=== PATIENT | female | born 1935 | race Caucasian/White ===

== ENCOUNTER 2017-02-06 12:14 | Emergency (ER) | payer MEDICARE ==
--- NOTE | ~2017-02-06 | EKG ---
PATIENT: SONIA DIANE UNIT #: [id number] Ventricular Rate: 142 BPM Atrial Rate: 142 BPM P-R Interval: 128 ms QRS Duration: 72 ms Q-T Interval: 276 ms QTC Calculation(Bezet): 424 ms P [place]: 82 degrees Calculated R [place]: 66 degrees Calculated T [place]: 92 degrees Diagnosis Line: Sinus tachycardia Diagnosis Line: Right atrial enlargement Diagnosis Line: Left ventricular hypertrophy with repolarization Diagnosis Line: abnormality Diagnosis Line: Abnormal ECG Diagnosis Line: When compared with ECG of 17-JUN-2011 21:12, Diagnosis Line: ST now depressed in Inferior leads Diagnosis Line: ST now depressed in Anterior leads Diagnosis Line: Nonspecific T wave abnormality now evident in Diagnosis Line: Lateral leads Diagnosis Line: Confirmed by JONATHAN RICH MD ([id number]) on 02/08/2017 Diagnosis Line: 7:27:45 AM INTERPRETING MD: LAYLA BERNABE
--- NOTE | ~2017-02-06 | CT4 ---
[facility] A Service of [facility] RADIOLOGY TEXT RESULTS PATIENT: SONIA DIANE LOCATION: [facility] : 37 UNIT #: [id number] AGE: [address]: Stefani Hernandez MD SEX: F ORDER DR: [id number] [facility] [address] [place], [place] [address] [id number] MR#: [id number] Acc #: [id number] NAME: SONIA DIANE : 1935 SEX: F STUDY DATE/TIME: 02/06/2017 14:44 UNIT: [facility] ROOM: STUDY DESCRIPTION: CT Abd and Pelv Wo Cont Attending Physician: Stefani Hernandez M.D. Referring Physician: Rebecca Blevins M.D. Ordering Physician: Stefani Hernandez M.D. Primary Care Physician: Rebecca Blevins M.D. MEDICAL IMAGING REPORT This report is preliminary unless electronic signature is present EXAM CT of abdomen and pelvis without contrast. DATE OF EXAM 02/06/2017 HISTORY Abdomen pain for 1 day. Shortness of air. UTI. TECHNIQUE CT of abdomen and pelvis was performed without contrast. NOTE: This CT exam was performed with one or more of the following radiation dose reduction techniques: automatic exposure control, adjustment of mA and/or kV according to patient size, and iterative reconstruction. FINDINGS CT ABDOMEN: Patchy subsegmental infiltrates or atelectasis in the posterior lower lobes in both lung bases. There is a small amount of free air in the anterior upper abdomen, extending over the anterior margin of the liver and posterior to the lower xiphoid. Findings are concerning for perforated viscus. No definite perforation site is identified, however. There is a small amount of ascites about the liver and spleen and in the pericolic gutters bilaterally. The liver, gallbladder, spleen, pancreas, and adrenal glands are unremarkable. Bilateral multifocal renal parenchymal atrophy. There is a 4.3 cm cyst in the lower pole of the right kidney. Normal caliber abdominal aorta. CT PELVIS: Small amount of ascites in the pelvis. Large amount of stool in the rectum suggesting fecal impaction with rectal distention. Sinclair catheter in the bladder. The bladder is decompressed. Hysterectomy. Moderate sigmoid diverticulosis. [facility]. [facility] A Service of [facility] RADIOLOGY TEXT RESULTS PATIENT: SONIA DIANE LOCATION: [facility] : 37 UNIT #: [id number] AGE: [address]: Stefani Hernandez MD SEX: F ORDER DR: IMPRESSION 1. There is a small amount of free air in the anterior upper abdomen extending over the anterior margin of the liver and inferior to the lower xiphoid. Findings are concerning for perforated viscus. However, no definite perforation site is identified as there is no additional free air or loculated fluid in the remainder of the abdomen or pelvis. No bowel obstruction. 2. Small amount of ascites in the abdomen and pelvis. 3. Large amount of stool in the distended rectum suggesting fecal impaction. 4. Sigmoid diverticulosis. 5. Sinclair catheter in the decompressed bladder. 6. Mild patchy subsegmental multifocal pulmonary infiltrates or atelectasis in the posterior lower lobes bilaterally. STAT * RESULT Dictated by... Sandeep Vargas M.D. THIS IS AN ELECTRONICALLY VERIFIED REPORT Sandeep Vargas M.D. at 02/06/2017 11:34 PM JACQUES/radha TD: 02/06/2017 15:52 JOB #: [id number] MEDICAL IMAGING REPORT COPY
--- NOTE | ~2017-02-06 | EKG ---
PATIENT: SONIA DIANE UNIT #: [id number] Ventricular Rate: 68 BPM Atrial Rate: 68 BPM P-R Interval: 294 ms QRS Duration: 138 ms Q-T Interval: 376 ms QTC Calculation(Bezet): 399 ms P [place]: 78 degrees Calculated R [place]: 83 degrees Calculated T [place]: 72 degrees Diagnosis Line: Sinus rhythm with 1st degree A-V block Diagnosis Line: Right bundle branch block with repolarization Diagnosis Line: abnormality Diagnosis Line: Abnormal ECG Diagnosis Line: When compared with ECG of 06-FEB-2017 11:11, Diagnosis Line: (unconfirmed) Diagnosis Line: GA interval has increased Diagnosis Line: Vent. rate has decreased BY 74 BPM Diagnosis Line: Right bundle branch block is now Present Diagnosis Line: Confirmed by JONATHAN RICH MD ([id number]) on 02/08/2017 Diagnosis Line: 7:29:43 AM INTERPRETING MD: LAYLA BERNABE
--- NOTE | ~2017-02-06 | CR72 ---
[facility] A Service of [facility] RADIOLOGY TEXT RESULTS PATIENT: SONIA DIANE LOCATION: [facility] : 36 UNIT #: [id number] AGE: [address]: Stefani Hernandez MD SEX: F ORDER DR: [id number] [facility] [place], [place] [address] [id number] E MR#: [id number] Acc #: [id number] NAME: SONIA DIANE : 1935 SEX: F STUDY DATE/TIME: 02/06/2017 11:40 UNIT: [facility] ROOM: STUDY DESCRIPTION: CR Chest Single View Portable Attending Physician: Stefani Hernandez M.D. Referring Physician: Rebecca Blevins M.D. Ordering Physician: Stefani Hernandez M.D. Primary Care Physician: Rebecca Blevins M.D. MEDICAL IMAGING REPORT This report is preliminary unless electronic signature is present EXAM Portable chest one-view DATE OF STUDY 02/06/2017 COMPARISON 06/17/2011 CLINICAL HISTORY Short of air for 1 day. FINDINGS Pulmonary hyperexpansion, with some optimal exposure over penetrating the upper portions of the lungs. Allowing for this there is no evidence of pneumothorax. There is some basilar interstitial prominence but no dense consolidation or effusion or suspicious nodule. Heart size is normal. IMPRESSION Findings probably indicates COPD without acute superimposed infiltrate, but exposure is suboptimal. Dictated by... Galen Parisi M.D. THIS IS AN ELECTRONICALLY VERIFIED REPORT Galen Parisi M.D. at 02/09/2017 1:50 PM TEV/to TD: 02/07/2017 10:30 JOB #: [id number] MEDICAL IMAGING REPORT [facility] A Service [facility] RADIOLOGY TEXT RESULTS PATIENT: SONIA DIANE LOCATION: [facility] : 36 UNIT #: [id number] AGE: [address]: Stefani Hernandez MD SEX: F ORDER DR: Page 1 of 1 COPY
--- NOTE | ~2017-02-06 | HP ---
Unit #: [id number] #: [id number] Patient: SONIA DIANE [id number] [facility]. [place], [place] [address] [id number] E MR#: [id number] NAME: SONIA DIANE ROOM: Age: 81 Sex: F Admission Date: 02/06/2017 : 1935 Attending Physician: Stefani Hernandez M.D. Referring Physician: Rebecca Blevins M.D. Primary Care Physician: Rebecca Blevins M.D. HISTORY AND PHYSICAL CHIEF COMPLAINT Short of air. HISTORY OF PRESENT ILLNESS The patient is an 81-year-old female with a past medical history of COPD, GERD, hyperlipidemia, who presented to the emergency department for evaluation of the above. History is obtained from chart review and discussion with ER staff as well as the patient's son who is at the bedside. The patient has apparently had two to three days of increasing confusion. She was last seen normal on February 03, 2017. The patient's son states that he works third shift so had not interacted with her much. Today, she was noted to be short of breath and so he called EMS. It is unclear if she has had any fever, any cough or cold symptoms or any other complaints. Upon arrival in the emergency department, pulse was 144, blood pressure 105/66, respiratory rate is 37. She was able to answer yes/no questions and was holding her abdomen. She had a CT of the abdomen and pelvis that showed a perforated viscus. During the course of her evaluation in the emergency department, she had developed severe respiratory distress and was intubated. Ultimately, pulse was lost. She was resuscitated. Upon arrival of family members, they requested that she be comfort measures only. She is being admitted to [facility] for evaluation and further treatment. PAST MEDICAL HISTORY 1. Admission to [facility] June 17 through the 2010 for syncope. 2. COPD with continued tobacco abuse. 3. Hyperlipidemia. 4. GERD. PAST SURGICAL HISTORY Hysterectomy. SOCIAL HISTORY The patient lives with her son. She is a smoker. FAMILY HISTORY Notable for malignancy. ALLERGIES Penicillin. Unit #: [id number] #: [id number] Patient: SONIA DIANE HOME MEDICATIONS None. REVIEW OF SYSTEMS A complete review of systems is unobtainable from the patient due to altered mental status. DIAGNOSTIC STUDIES LABORATORY: Troponin is less than 0.05. Arterial blood gas shows pH of 7.415, pCO2 of 46.1, pO2 of 237 on BiPAP with an FIO2 of 100%. Complete blood count notable for white blood cell count of 12.7, hematocrit and hematocrit 7.6 and 27.3 respectively. Lactic acid 2.7. Comprehensive metabolic panel notable for sodium of 151, glucose 156, BUN and creatinine 93 and 1.9 respectively. Amylase and lipase are normal. BNP is 41. INR is 1.3. IMAGING: CT of the abdomen and pelvis shows findings concerning for perforated viscus with a small amount of ascites in the abdomen and pelvis as well as findings suggestive of fecal impaction. EKG shows sinus tachycardia with a rate of 142 beats per minute. PHYSICAL EXAMINATION VITAL SIGNS: Temperature 97.6, pulse 144, respirations 37, blood pressure 105/66. Most recent pulse and blood pressure are 120 and 48/14 respectively. GENERAL: The patient is a female who is completely unresponsive, intubated. HEENT: Pupils are fixed. Mucous membranes are dry. NECK: Supple. Trachea is midline. CARDIOVASCULAR: Bradycardic in the 40s. LUNGS: Demonstrate scattered rhonchi. ABDOMEN: Soft with bowel sounds present but decreased. EXTREMITIES: There is no pedal edema. NEUROLOGIC: The patient is completely unresponsive, not requiring any sedation. PSYCH: Unable to assess. SKIN: Skin of examined areas is warm and dry. ASSESSMENT The patient is an 81-year-old female with: 1. Resuscitated arrest. 2. Perforated viscus. 3. Sepsis. 4. Hypernatremia. 5. Acute kidney injury. 6. Chronic obstructive pulmonary disease with continued tobacco abuse. 7. Gastroesophageal reflux disease. 8. Hyperlipidemia. PLAN Admit the patient. She will be comfort measures only. She is a DO NOT RESUSCITATE. The son is waiting for additional family members to come in town from out of state. All of his questions were answered. Unit #: [id number] #: [id number] Patient: SONIA DIANE Dictated by Lg Fairchild/catie TD: 02/07/2017 08:57 JOB #: [id number] HISTORY AND PHYSICAL X Heidy Lopez MD HISTORY AND PHYSICAL
[2017-02-06 11:23] LABS: POC - CKMB 1.1 ng/mL (0.0-7.9); POC - TROPONIN <0.05 ng/mL (<=0.05)
[2017-02-06 12:01] LABS: ARTERIAL BLD GAS O2 SATURATION 98.3 % (90.0-100.0); ARTERIAL BLOOD GAS CARBOXY HB 1.3 %sat (0.0-9.0); ARTERIAL BLOOD GAS HCO3 29.5 mmol/L; ARTERIAL BLOOD GAS MET HB 0.6 %sat (0.0-2.0); ARTERIAL BLOOD GAS PCO2 46.1 mmHg (35.0-45.0); ARTERIAL BLOOD GAS pH 7.415 (7.350-7.450)
[2017-02-06 12:06] LABS: ARTERIAL BLOOD GAS ALLEN TEST NORMAL; ARTERIAL BLOOD GAS ART SITE RIGHT RADIAL; ARTERIAL BLOOD GAS DELIVERY BIPAP; ARTERIAL DRAW? YES
[~2017-02-06 12:14] MED LIST: ADVAIR 250-501 EACH IH; ADVAIR 2501 DISK W/D PO; ATIVAN PO; AVELOX400 MG PO; BACTRIM DS TABL1 TA1 PO; COMBIVENT INH14.7 GM INH; FERRO-TIME325 MG PO; LANSOPRAZOLE30 MG PO; LIPITOR PO; LIPITOR20 MG PO; MAIL ORDER PHARMACY; NEXIUM PO; TRAMADOL HCL50 M1 PO
[2017-02-06 12:40] LABS: BASOPHIL% 0.2 % (0-2.5); HEMATOCRIT 27.3 % (35.0-45.0); HEMOGLOBIN 7.6 gm/dL (12.0-16.0); LYMPHOCYTE# 0.4 X10e3 (1.0-3.5); LYMPHOCYTE% 3.5 % (17.0-45.0); MEAN CELL VOLUME 79.4 FL (83-96); MEAN CORPUSCULAR HEMOGLOBIN 22.1 PG (28-34); MEAN CORPUSCULAR HGB CONC 27.9 g/dL (30-36); MEAN PLATELET VOLUME 8.1 FL (6.5-11.5); MONOCYTE# 2.1 X10e3 (0-1.0); MONOCYTE% 16.7 % (3.0-12.0); NEUTROPHIL# 10.1 X10e3 (1.5-7.1); NEUTROPHIL% 79.6 % (40-75); PLATELET COUNT 409 X10e3 (140-420); RED BLOOD COUNT 3.44 X10e (3.90-5.30); RED CELL DISTRIBUTION WIDTH 20.6 % (11.0-15.5); WHITE BLOOD COUNT 12.7 X10e3 (4.0-10.5)
[2017-02-06 12:41] LABS: DIFF IND YES
[2017-02-06 12:46] LABS: INR 1.3; PROTHROMBIN TIME (PATIENT) 13.9 SECONDS (9.6-11.5)
[2017-02-06 12:58] LABS: HYPOCHROMIA MOD; NUCLEATED RED BLOOD CELL 12 /100 (0); PLATELET ESTIMATE NORMAL (NORMAL)
[2017-02-06 12:59] LABS: ELLIPTOCYTES PRESENT; POIKILOCYTOSIS MOD
[2017-02-06 13:04] LABS: ALBUMIN SERUM 2.8 g/dL (3.5-5.0); BILIRUBIN, DIRECT 0.3 mg/dL (0.0-0.2); BILIRUBIN,INDIRECT 0.6 mg/dL (0.0-0.9); BILIRUBIN,TOTAL 0.9 mg/dL (0.2-2.0); BUN/CREATININE RATIO 48.94; CALCIUM SERUM 8.6 mg/dL (8.4-10.2); CREATININE SERUM 1.9 mg/dL (0.6-1.4); POTASSIUM 3.8 mmol/L (3.5-5.1)
== END 2017-02-06 20:10 | disposition expired ==
LOC: CED 12:14
PROVIDERS: Emergency Medicine
DX: E86.0 Dehydration (principal); N17.9 Acute kidney failure, unspecified; D64.9 Anemia, unspecified; F17.210 Nicotine dependence, cigarettes, uncomplicated
CPT/HCPCS: 31500; 36415; 36569; 36600; 51702; 71010; 74176; 80048; 80076; 82150; 82553; 82803; 83605; 83690; 83880; 84484; 85025; 85379; 85610; 86850; 86870; 86880; 86885; 86900; 86901; 86905; 87040; 92950; 93005; 94002; 94003; 94640; 94660; 94760; 94761; 96361; 96365; 96375; 99291; 99292; C9113; J0171; J1265; J2270; J2405; J2930